=== PATIENT | female | born 1955 | race Caucasian/White ===

== ENCOUNTER 2020-07-18 05:37 | Emergency (ER) | payer MEDICARE, OTHER ==
[~2020-07-18 05:37] MED LIST: CIPRO500 MG PO; DETROL LA4 MG PO; EFFEXOR-XR 75 M75 MG PO; METRONIDAZOLE500 MG PO; MOBIC7.5 MG PO; PREMARIN VG; PREMPRO 0.625-1 EACH PO; SYNTHROID100 MCG PO; ZETIA10 MG PO
== END 2020-07-18 08:00 | disposition home or self-care (01) ==
LOC: FER 05:37
DX: S02.2XXA Fracture of nasal bones, initial encounter for closed fracture (principal); S01.511A Laceration without foreign body of lip, initial encounter; I95.1 Orthostatic hypotension; E03.9 Hypothyroidism, unspecified; Z79.899 Other long term (current) drug therapy; W19.XXXA Unspecified fall, initial encounter; Y92.002 Bathroom of unspecified non-institutional (private) residence as the place of occurrence of the external cause
CPT/HCPCS: 70450; 70486; 72125; 93005

== ENCOUNTER 2021-10-03 17:11 | Emergency (ER) | payer MEDICARE, OTHER | END 2021-10-03 19:00 | disposition left against medical advice (07) | LOC: FER 17:11 | DX: M79.661 Pain in right lower leg (principal); Z53.29 Procedure and treatment not carried out because of patient's decision for other reasons; X58.XXXA Exposure to other specified factors, initial encounter; Y93.89 Activity, other specified | CPT/HCPCS: 73560 ==